=== PATIENT | female | born 1960 | race Caucasian/White ===

== ENCOUNTER 2024-10-13 18:03 | Outpatient (CLI) | payer BC, SELFPAY | END 2024-10-13 18:04 | disposition home or self-care (01) | LOC: NFLDREF 10-15 19:28 | PROVIDERS: Visit Provider Family Medicine | DX: E78.00 Pure hypercholesterolemia, unspecified (principal); M85.80 Other specified disorders of bone density and structure, unspecified site | CPT/HCPCS: 80053; 80061 ==